=== PATIENT | male | born 1995 | race Caucasian/White ===

== ENCOUNTER 2019-04-19 19:03 | Inpatient (IN) | payer OTHER ==
[~2019-04-19] VITALS: Ht 182.9 cm; Wt 73.2 kg
[2019-04-19 19:49] LABS: HEMATOCRIT 41.5 % (42.0-52.0); HEMOGLOBIN 14.2 g/dl (13.5-17.5); MEAN CORPUSCULAR HEMOGLOBIN 31.2 pg (27.0-33.0); MEAN CORPUSCULAR HGB CONC 34.2 g/dl (32.0-36.5); MEAN CORPUSCULAR VOLUME 91.2 fl (80.0-96.0); PLATELET COUNT, AUTOMATED 283 10^3/uL (150-450); RED BLOOD COUNT 4.55 10^6/uL (4.30-6.10); WHITE BLOOD COUNT 8.6 10^3/uL (4.0-10.0)
[2019-04-19 20:20] LABS: AMPHETAMINES LEVEL URINE NEGATIVE (NEGATIVE); BARBITURATES URINE NEGATIVE (NEGATIVE); BENZODIAZEPINES URINE NEGATIVE (NEGATIVE); CANNABINOIDS URINE NEGATIVE (NEGATIVE); COCAINE METABOLITE URINE NEGATIVE (NEGATIVE); METHADONE URINE NEGATIVE (NEGATIVE); OPIATES URINE NEGATIVE (NEGATIVE); PHENCYCLIDINE URINE NEGATIVE (NEGATIVE)
[2019-04-19 20:23] LABS: ACETAMINOPHEN LEVEL < 2.0 UG/ML (10.0-30.0); ALBUMIN 3.9 GM/DL (3.2-5.2); ALT/SGPT 16 U/L (12-78); BILIRUBIN,DIRECT < 0.1 MG/DL (0.0-0.2); BILIRUBIN,TOTAL 0.3 MG/DL (0.2-1.0); BLOOD UREA NITROGEN 11 MG/DL (7-18); CALCIUM LEVEL 8.8 MG/DL (8.5-10.1); CARBON DIOXIDE LEVEL 29 MEQ/L (21-32); CHLORIDE LEVEL 103 MEQ/L (98-107); CREATININE FOR GFR 0.98 MG/DL (0.70-1.30); ETHYL ALCOHOL (ETHANOL) < 0.003 % (0.000-0.010); GLOMERULAR FILTRATION RATE > 60.0 (>60); GLUCOSE, FASTING 96 MG/DL (70-100); POTASSIUM SERUM 3.6 MEQ/L (3.5-5.1); SALICYLATE LEVEL < 1.7 MG/DL (5.0-30.0); SODIUM LEVEL 140 MEQ/L (136-145); TOTAL PROTEIN 7.3 GM/DL (6.4-8.2)
[2019-04-20] MEDS ORDERED: IBUPROFEN 400 MG TAB PO PRN (14:15)
[2019-04-20] MEDS ORDERED: MAALOX 30 ML SUSP *UDC PO PRN (14:15)
[2019-04-20] MEDS ORDERED: MOM 30ML SUSPENSION UDC PO PRN (14:15)
[2019-04-20 15:59] VITALS: BP 131/73
--- NOTE | 2019-04-20 17:23 | HPEPDOC ---
[facility] Medical History & Physical Date of Admission Apr 20, 2019 Date of Service: Apr 20, 2019 Attending Physician: ISSA SHERMAN MD History and Physical CHIEF COMPLAINT: Medical management of patient with severe depressive episode HISTORY OF PRESENT ILLNESS:. Patient is a 23-year-old active male who presented to [facility], [place] for acute depressive episode. The patient would not elaborate as to the reasons for his current inpatient psychiatric hospitalization. Regarding the patient's medical health, patient denies any past medical history and states that he carries no other medical diagnoses. Patient is also denies any past surgical history as well. Patient states that he smokes electronic cigarettes and uses a cartridge every 5 days, which he states is a one to one pack of cigarettes a week. He denies use of any other tobacco products. Patient does state that he drinks alcohol approximately 1 time a month. History of choice whiskey. He states that when he does drink. He drinks "until he is drunk."'s. He has denied any IV or illicit drug use now or in the past. Patient states that currently he has no complaints. He denies any nausea, vomiting, diarrhea, constipation, chest pain or shortness of breath. PAST MEDICAL HISTORY: None PAST SURGICAL HISTORY: None SOCIAL HISTORY: As stated in HPI. Patient is an active male. He uses electronic cigarettes and uses approximately one cartridge every 5 days, which is equivalent to one pack of cigarettes per week. He admits to alcohol use 1-2 times a month where he "drinks until I am drunk." States his drink of choice is whiskey. The patient denies any IV or illicit drug use now or in the past. FAMILY HISTORY: Patient states that both his mother and father are alive. He states his father has a history of type 1 diabetes. He states his mom has no medical conditions that he is aware of ALLERGIES: Please see below. REVIEW OF SYSTEMS: CONSTITUTIONAL: Denies fevers, chills, night sweats, unintentional weight loss or weight gain. HEENT:. Patient denies any dysphasia, changes in vision. Denies any swollen lymph nodes. CARDIOVASCULAR:. Patient denies any chest pain, palpitations or feelings of heart racing. RESPIRATORY:. Denies any shortness of breath, cough or wheezing. Denies any sputum production or congestion GASTROINTESTINAL:. Patient denies any abdominal pain, nausea, vomiting, diarrhea, constipation.. He denies any blood in his stools. He denies any dark or tarry stools GENITOURINARY:. Patient denies any increased frequency, urgency. He denies any dysuria. SKIN:. Patient denies any rashes or lesions. He denies any pruritus MUSCULOSKELETAL:. Denies any muscle skeletal pain or muscle weakness. NEUROLOGICAL: Patient denies any changes in his gait or speech. . He denies any muscle weakness or decreased sensation PSYCHIATRIC:. Patient admits to depression. ENDOCRINE: Patient denies any intolerance or cold intolerance. HEMATOLOGIC/LYMPHATIC:. Denies any easy bruising, bleeding, or history of deep venous thrombosis. HOME MEDICATIONS: Please see below. PHYSICAL EXAMINATION: VITAL SIGNS: Temperature 98.3, pulse 65, respiratory rate, 16, blood pressure, 131\\73, pulse oximetry, 98 % on room air. GENERAL APPEARANCE: Patient is awake, alert and oriented. He is sitting in chair in exam room. He appears somewhat vigilant. HEENT: Atraumatic, normocephalic. Eyes are nonicteric. Trachea is midline. No palpable cervical, supraclavicular or axillary lymphadenopathy. CARDIOVASCULAR:. Normal S1, S2, regular rate and rhythm. No clicks, rubs or murmurs. LUNGS: Clear vesicular breath sounds bilaterally with good respiratory effort. No wheezes, rhonchi, or rales. Normal expiratory phase. No accessory muscle use. Symmetric chest expansion. . No cyanosis or clubbing of the nailbeds ABDOMEN:. Soft, nondistended, nontender to palpation all 4 quadrants. No rebound tenderness or guarding. Positive bowel sounds throughout. MUSCULOSKELETAL: 5 out of 5 strength testing in bilateral upper and lower extremities EXTREMITIES: No edema, 2+ posterior tibial 2+ radial pulses bilaterally. NEUROLOGICAL: No focal neurological deficits. PSYCHIATRIC:. Patient's mood appears appropriate for situation. LABORATORY DATA: See below. MICROBIOLOGY: Please see below. ASSESSMENT: Patient is a 23-year-old active male admitted for depressive episode. He had refused to further elaborate on the condition. Surrounding his admission. Patient has no previous medical history and currently not taking any medications or having any actively managed medical problems. . PLAN: 1. Medical management consultation -From a medical standpoint, the patient currently has no active acute medical conditions. He has no chronic medical conditions that need further monitoring inpatient. As an inpatient, he is taking trazodone 50 mg, Advil 400 mg every 6 hours when needed for pain. He's been started on as needed milk of magnesia for constipation and as needed Mylanta for heartburn, indigestion. 2. High risk substance use -Given patient's demographic he is at risk for substance abuse. . He has rece ived a toxicology screen which is negative for any illicit drugs. Disposition: Thank you for this medical consultation. We will gladly follow the patient, as long as medically necessary. I performed a history and physical examination of the patient and discussed their management with the above documenter. I reviewed the note and agree with the documented findings and plan of care. Vital Signs Vital Signs Date Time Temp Pulse Resp B/P (MAP) Pulse Ox O2 Delivery O2 Flow Rate FiO2 04/20/19 15:59 98.3 65 16 131/73 (92) 98 04/20/19 14:37 Room Air Laboratory Data Labs 24H Laboratory Tests 2 04/19/19 19:41: Nucleated Red Blood Cells % (auto) 0.0, Anion Gap 8, Glomerular Filtration Rate > 60.0, Calcium Level 8.8, Aspartate Amino Transf (AST/SGOT) 14, Alanine Aminotransferase (ALT/SGPT) 16, Alkaline Phosphatase 90, Total Bilirubin 0.3, Direct Bilirubin < 0.1, Total Protein 7.3, Albumin 3.9, Albumin/Globulin Ratio 1.15, Thyroid Stimulating Hormone (TSH) 1.100, Salicylates Level < 1.7L, Urine Amphetamines Screen NEGATIVE, Urine Benzodiazepines Screen NEGATIVE, Urine Opiates Screen NEGATIVE, Urine Methadone Screen NEGATIVE, Acetaminophen Level < 2.0L, Urine Barbiturates Screen NEGATIVE, Urine Phencyclidine Screen NEGATIVE, Urine Cocaine Metabolite Screen NEGATIVE, Urine Cannabinoids Screen NEGATIVE, Ethyl Alcohol Level < 0.003 CBC/BMP Laboratory Tests 04/19/19 19:41 Red Blood Count 4.55, Mean Corpuscular Volume 91.2, Mean Corpuscular Hemoglobin 31.2, Mean Corpuscular Hemoglobin Concent 34.2, Red Cell Distribution Width 12.4 Home Medications Scheduled Bupropion Hcl (Bupropion Xl) 150 Mg Tab.er.24h, 150 MG PO QAM for mood Scheduled PRN Nicotine Polacrilex (Nicotine Gum) 2 Mg Gum, 2 MG PO Q2HP PRN for SMOKING CESSATION Allergies Coded Allergies: No Known Allergies (Unverified , 04/19/19) A-FIB/CHADSVASC A-FIB History Current/History of A-Fib/PAF?: No NESSA MICHELLE DO Apr 20, 2019 17:23 ISSA SHERMAN MD Apr 29, 2019 13:34
[2019-04-20] MEDS: NICOTINE POLACRILEX 2 MG GUM PO PRN ×2 (18:05→20:24)
[2019-04-20] MEDS ORDERED: traZODone 50 MG TAB PO PRN (21:00)
[2019-04-21 06:28] VITALS: BP 100/36
[2019-04-21] MEDS: NICOTINE POLACRILEX 2 MG GUM PO PRN ×4 (08:29→20:13)
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
[2019-04-21] MEDS ORDERED: buPROPion **XL** TABLET 150MG (WELLBUTRIN XL) PO ONE (13:00)
[2019-04-21 17:55] VITALS: BP 118/59
[2019-04-22 06:33] VITALS: BP 128/73
[2019-04-22] MEDS: buPROPion **XL** TABLET 150MG (WELLBUTRIN XL) PO SCH (09:10)
[2019-04-22] MEDS: NICOTINE POLACRILEX 2 MG GUM PO PRN ×2 (13:06→17:44)
[2019-04-22] MEDS ORDERED: NICO2GUM PO (16:31)
[2019-04-22] MEDS ORDERED: BUPR150T3 PO (16:31)
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
[2019-04-22 17:51] VITALS: BP 124/77
[2019-04-23 06:43] VITALS: BP 106/59
[2019-04-23] MEDS: buPROPion **XL** TABLET 150MG (WELLBUTRIN XL) PO SCH (08:30)
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
[2019-04-23] MEDS: NICOTINE POLACRILEX 2 MG GUM PO PRN (11:46)
== END 2019-04-23 14:00 | disposition home or self-care (01) | DRG 885 ==
LOC: M ED 19:03 → M ED INP 04-20 14:06 → M ED 04-20 14:39 → M PSY 04-20 14:50
PROVIDERS: ADMIT Psychiatry & Neurology Addiction Medicine; ATTEND Psychiatry & Neurology Addiction Medicine
DX: F33.1 Major depressive disorder, recurrent, moderate (principal); R45.851 Suicidal ideations; F17.210 Nicotine dependence, cigarettes, uncomplicated; Z62.812 Personal history of neglect in childhood; Z79.899 Other long term (current) drug therapy; Z81.1 Family history of alcohol abuse and dependence; Z81.4 Family history of other substance abuse and dependence

== ENCOUNTER 2019-09-15 23:48 | Emergency (ER) | payer OTHER ==
[~2019-09-15 23:48] MED LIST: BUPR150T3 PO; NICO2GUM PO
[2019-09-16] MEDS ORDERED: WELLTAB40 PO (00:03)
[2019-09-16 00:35] LABS: BASO % 0.2 % (0.0-1.0); EOS % 0.1 % (0.0-3.0); HEMATOCRIT 37.7 % (42.0-52.0); LYMPH # 1.2 10^3/uL (1.5-5.0); LYMPH % 11.9 % (24.0-44.0); MEAN CORPUSCULAR HEMOGLOBIN 30.8 pg (27.0-33.0); MEAN CORPUSCULAR HGB CONC 34.5 g/dl (32.0-36.5); MEAN CORPUSCULAR VOLUME 89.3 fl (80.0-96.0); MONO # 0.9 10^3/uL (0.0-0.8); MONO % 9.5 % (0.0-5.0); NEUTROPHILS # 7.6 10^3/uL (1.5-8.5); PLATELET COUNT, AUTOMATED 248 10^3/uL (150-450); RED BLOOD COUNT 4.22 10^6/uL (4.30-6.10); WHITE BLOOD COUNT 9.7 10^3/uL (4.0-10.0)
[2019-09-16 00:58] LABS: BLOOD UREA NITROGEN 13 MG/DL (7-18); CALCIUM LEVEL 8.9 MG/DL (8.5-10.1); CARBON DIOXIDE LEVEL 25 MEQ/L (21-32); CHLORIDE LEVEL 105 MEQ/L (98-107); CREATININE FOR GFR 0.88 MG/DL (0.70-1.30); GLOMERULAR FILTRATION RATE > 60.0 (>60); GLUCOSE, FASTING 92 MG/DL (70-100); POTASSIUM SERUM 3.7 MEQ/L (3.5-5.1); SODIUM LEVEL 137 MEQ/L (136-145)
[2019-09-16] MEDS ORDERED: NS 1,000 ML IV ONE (02:15)
[2019-09-16 02:35] VITALS: BP 125/62
--- NOTE | 2019-09-17 06:45 | ECGEPIP ---
[facility] - ED Test Date: 2019-09-16 Pat Name: BEENA MIRELES Department: Room: - Gender: Male Reclaimer: cindy : [id number] Requested By: FERMÍN MOYA Order Number: [id number] Reading MD: Gaurav Porter Measurements Intervals [place] Rate: 93 P: 72 CO: 149 QRS: 73 QRSD: 99 T: 30 QT: 341 QTc: 425 Interpretive Statements SINUS RHYTHM WITH SINUS ARRHYTHMIA BENIGN EARLY REPOLARIZATION NO PRIORS FOR COMPARISON Electronically Signed on 09-17-2019 6:45:19 EST by Gaurav Porter
== END 2019-09-16 03:06 | disposition home or self-care (01) ==
LOC: M ED 23:48
DX: E86.0 Dehydration (principal); Z79.899 Other long term (current) drug therapy